=== PATIENT | female | born 1940 | race Caucasian/White ===

== ENCOUNTER 2021-12-27 14:57 | Emergency (ER) | payer OTHER ==
[~2021-12-27] VITALS: Ht 147.3 cm; Wt 49.9 kg
[~2021-12-27 14:57] MED LIST: ALBMDI INH; ASA81 PO; FURO-150 PO; LACT1CAP72 PO; LEVO750T45 PO; LOSA100T3 PO; METO-442 PO; PEDI1TAB28 PO; SIMV20TA2 PO
[2021-12-27 14:59] VITALS: BP_SYST 167
[2021-12-27 15:56] LABS: BASOPHILS % (AUTO) 0.4 % (0.0-2.0); EOSINOPHILS % (AUTO) 0.3 % (0.0-4.0); HEMATOCRIT 42.9 % (36-48); HEMOGLOBIN 14.5 g/dL (12.0-16.0); LYMPHOCYTES # (AUTO) 1.6 K/uL (1.0-5.5); MEAN CORPUSCULAR HEMOGLOBIN 31 pg (27-31); MEAN CORPUSCULAR HGB CONC 34 % (32-36); MEAN CORPUSCULAR VOLUME 93 fL (79.0-98.0); MONOCYTES # (AUTO) 0.7 K/uL (0.0-1.0); MONOCYTES % (AUTO) 6.5 % (1.7-9.3); NEUTROPHILS # (AUTO) 8.9 K/uL (1.8-7.7); NEUTROPHILS % (AUTO) 78.8 % (40.0-70.0); PLATELET COUNT (AUTO) 282 K/uL (130-430); RED BLOOD CELL COUNT(AUTO) 4.62 MIL/uL (4.2-6.2); RED CELL DISTRIBUTION WIDTH 14.5 % (9.0-15.0); WHITE BLOOD COUNT (AUTO) 11.3 K/uL (4.8-10.8)
[2021-12-27 16:54] LABS: ANION GAP 14 (5-15); CALCIUM 10.3 mg/dL (8.4-11.0); CHLORIDE 99 mmol/L (98-107); CREATININE 1.05 mg/dL (0.55-1.30); GLUCOSE 138 mg/dL (70-99); SODIUM SERUM 136 mmol/L (136-145); UREA NITROGEN, BLOOD 23 mg/dL (8-21)
[2021-12-27 16:55] LABS: ALANINE AMINOTRANSFERASE 52 U/L (12-78); ALBUMIN 3.4 g/dL (3.4-4.8); ASPARTATE AMINOTRANSFERASE 46 U/L (10-37); C-REACTIVE PROTEIN QUANT 5.7 mg/dL (0-0.5); TOTAL BILIRUBIN 0.5 mg/dL (0.0-1.0)
[2021-12-27 17:13] LABS: ERYTHROCYTE SEDIMENTATION RATE 65 MM/HR (0-20)
[2021-12-27] MEDS: DIPHENHYDRAMINE INJ 50 MG/ML VIAL IVP ONE (17:14)
[2021-12-27] MEDS: METOCLOPRAMIDE HCL 10 MG/2 ML VIAL IVP ONE (17:14)
[2021-12-27 19:28] VITALS: BP_SYST 121
== END 2021-12-27 19:28 | disposition short-term general hospital (02) ==
LOC: SED 14:57
DX: I61.9 Nontraumatic intracerebral hemorrhage, unspecified (principal); I11.0 Hypertensive heart disease with heart failure; I50.9 Heart failure, unspecified; J44.9 Chronic obstructive pulmonary disease, unspecified; Z79.899 Other long term (current) drug therapy
CPT/HCPCS: 36415; 70450; 71045; 76376; 80053; 84484; 85025; 85651; 86140; 96374; 96375; 99285; J1200; J2765

== ENCOUNTER 2022-04-23 12:52 | Inpatient (IN) | payer OTHER ==
[~2022-04-23] VITALS: Ht 167.6 cm; Wt 45.4 kg
[~2022-04-23 12:52] MED LIST changes: -LEVO750T45 PO; +LEVO750T64 PO; +SIMV-343 PO; -SIMV20TA2 PO
[2022-04-23 13:00] VITALS: BP_SYST 122
[2022-04-23] MEDS ORDERED: LIP40 PO ×2 (13:20→19:43)
[2022-04-23] MEDS ORDERED: LOSA100T3 PO ×2 (13:20→19:43)
[2022-04-23] MEDS ORDERED: METO50TA7 PO ×2 (13:20→19:43)
[2022-04-23] MEDS ORDERED: NACL 0.9% 1,000 ML IV ONE (17:30)
[2022-04-23] MEDS ORDERED: VANCOMYCIN HCL 1,000 MG in D5W 250 ML IV ONE (17:30)
[2022-04-23] MEDS ORDERED: PIPERACILLIN/TAZO 3.38 GM in D5W 50 ML IV ONE (17:30)
[2022-04-23] MEDS ORDERED: PIPERACILLIN/TAZOBACTAM 3.375 GM/VIAL (ZOSYN) IV ONE (18:08)
[2022-04-23] MEDS ORDERED: VANCOMYCIN HCL 1000 MG/VIAL IV ONE (18:08)
[2022-04-23 18:30] LABS: BASOPHILS # (AUTO) 0.1 K/uL (0.0-0.2); BASOPHILS % (AUTO) 0.4 % (0.0-2.0); EOSINOPHILS # (AUTO) 0.2 K/uL (0.0-0.4); EOSINOPHILS % (AUTO) 1.6 % (0.0-4.0); HEMOGLOBIN 13.4 g/dL (12.0-16.0); LYMPHOCYTES # (AUTO) 2.8 K/uL (1.0-5.5); MEAN CORPUSCULAR HEMOGLOBIN 33 pg (27-31); MEAN CORPUSCULAR HGB CONC 34 % (32-36); MEAN CORPUSCULAR VOLUME 100 fL (79.0-98.0); MONOCYTES # (AUTO) 0.7 K/uL (0.0-1.0); NEUTROPHILS # (AUTO) 9.5 K/uL (1.8-7.7); PLATELET COUNT (AUTO) 274 K/uL (130-430); RED BLOOD CELL COUNT(AUTO) 4.02 MIL/uL (4.2-6.2); RED CELL DISTRIBUTION WIDTH 13.7 % (9.0-15.0); WHITE BLOOD COUNT (AUTO) 13.2 K/uL (4.8-10.8)
[2022-04-23] MEDS ORDERED: ASA81 PO (19:43)
[2022-04-23 19:53] LABS: BILIRUBIN,URINE NEGATIVE (NEGATIVE); CLARITY/URINE CLOUDY (CLEAR); COLOR,URINE YELLOW (YELLOW); GLUCOSE,URINE NEGATIVE (NEGATIVE); KETONES,URINE NEGATIVE (NEGATIVE); LEUKOCYTE ESTERASE ,URINE 3+ (NEGATIVE); NITRITE, URINE POSITIVE (NEGATIVE); PROTEIN URINE NEGATIVE (NEGATIVE); UROBILINOGEN,URINE 0.2 (0.2-1.0)
[2022-04-23 20:22] LABS: ERYTHROCYTE SEDIMENTATION RATE 64 MM/HR (0-20)
[2022-04-23 20:29] LABS: BLOOD, URINE TRACE (NEGATIVE)
[2022-04-23 20:38] LABS: CHLORIDE 104 mmol/L (98-107); POTASSIUM 3.7 mmol/L (3.5-5.1); SODIUM SERUM 139 mmol/L (136-145)
[2022-04-23 20:39] LABS: ALANINE AMINOTRANSFERASE 23 U/L (12-78); ANION GAP 12 (5-15); ASPARTATE AMINOTRANSFERASE 18 U/L (10-37); CALCIUM 9.6 mg/dL (8.4-11.0); CREATININE 0.75 mg/dL (0.55-1.30); GLUCOSE 113 mg/dL (70-99); TOTAL BILIRUBIN 0.4 mg/dL (0.0-1.0); UREA NITROGEN, BLOOD 17 mg/dL (8-21)
[2022-04-23 20:40] LABS: ALBUMIN 3.4 g/dL (3.4-4.8)
[2022-04-23 21:32] LABS: BACTERIA,URINE MANY /HPF (None Seen); MUCUS,URINE None Seen /LPF (None Seen); WBC,URINE >100 /HPF (0-3)
[2022-04-24 01:45] VITALS: BP_SYST 155
[2022-04-24 02:22] VITALS: BP_SYST 134
[2022-04-24] MEDS ORDERED: cefTRIAXone 1 GM in D5W 50 ML IV SCH (04:30)
[2022-04-24 06:46] LABS: BASOPHILS # (AUTO) 0.1 K/uL (0.0-0.2); BASOPHILS % (AUTO) 0.6 % (0.0-2.0); EOSINOPHILS # (AUTO) 0.3 K/uL (0.0-0.4); EOSINOPHILS % (AUTO) 3.1 % (0.0-4.0); HEMATOCRIT 37.3 % (36-48); HEMOGLOBIN 12.8 g/dL (12.0-16.0); LYMPHOCYTES # (AUTO) 2.8 K/uL (1.0-5.5); LYMPHOCYTES % (AUTO) 29.4 % (20.5-51.5); MEAN CORPUSCULAR HEMOGLOBIN 34 pg (27-31); MEAN CORPUSCULAR HGB CONC 34 % (32-36); MEAN CORPUSCULAR VOLUME 99 fL (79.0-98.0); MONOCYTES # (AUTO) 0.6 K/uL (0.0-1.0); NEUTROPHILS # (AUTO) 5.7 K/uL (1.8-7.7); NEUTROPHILS % (AUTO) 60.9 % (40.0-70.0); PLATELET COUNT (AUTO) 278 K/uL (130-430); RED BLOOD CELL COUNT(AUTO) 3.77 MIL/uL (4.2-6.2); RED CELL DISTRIBUTION WIDTH 13.5 % (9.0-15.0); WHITE BLOOD COUNT (AUTO) 9.4 K/uL (4.8-10.8)
[2022-04-24 08:00] VITALS: BP_SYST 103; BP_SYST 147
[2022-04-24] MEDS: cefTRIAXone 1 GM in D5W 50 ML IV SCH (09:55)
[2022-04-24] MEDS ORDERED: ALBUTEROL SULFATE 0.083% 2.5 MG/3 ML VIAL.NEB INH PRN (11:15)
[2022-04-24] MEDS ORDERED: ONDANSETRON HCL 4 MG/2 ML VIAL IVP PRN (11:15)
[2022-04-24] MEDS ORDERED: ALBUTEROL MDI INHALATION 8 GM INH INH PRN (11:15)
[2022-04-24] MEDS ORDERED: LORazepam 2 MG/ML VIAL IVP PRN (11:15)
[2022-04-24] MEDS ORDERED: IPRATROPIUM BROM 0.5 MG/2.5 ML VIAL.NEB (ATROVENT) INH PRN (11:15)
[2022-04-24] MEDS ORDERED: NALOXONE HCL 0.4 MG/ML AMP (NARCAN) IVP PRN ×2 (11:15)
[2022-04-24] MEDS ORDERED: ACETAMINOPHEN 325 MG TABLET PO PRN (11:15)
[2022-04-24 12:00] VITALS: BP_SYST 101; BP_SYST 115
[2022-04-24] MEDS: NORMAL SALINE 5 ML DISP.SYRIN IVF SCH ×4 (13:11→21:41)
[2022-04-24 16:00] VITALS: BP_SYST 113
[2022-04-24] MEDS: HYDROcodone/ACETAMIN 5-325 MG TAB (NORCO/ VICODIN) PO PRN ×2 (16:46→21:40)
[2022-04-24 20:00] VITALS: BP_SYST 120
[2022-04-24] MEDS: ATORVASTATIN 20 MG TABLET PO SCH (21:36)
[2022-04-25] VITALS: BP_SYST 126
[2022-04-25 04:00] VITALS: BP_SYST 124
[2022-04-25] MEDS: NORMAL SALINE 5 ML DISP.SYRIN IVF SCH ×4 (06:24→21:02)
[2022-04-25 07:09] LABS: BASOPHILS # (AUTO) 0.1 K/uL (0.0-0.2); BASOPHILS % (AUTO) 0.6 % (0.0-2.0); EOSINOPHILS # (AUTO) 0.3 K/uL (0.0-0.4); EOSINOPHILS % (AUTO) 3.6 % (0.0-4.0); HEMATOCRIT 33.9 % (36-48); HEMOGLOBIN 11.6 g/dL (12.0-16.0); LYMPHOCYTES # (AUTO) 2.1 K/uL (1.0-5.5); LYMPHOCYTES % (AUTO) 25.3 % (20.5-51.5); MEAN CORPUSCULAR HEMOGLOBIN 34 pg (27-31); MEAN CORPUSCULAR HGB CONC 34 % (32-36); MEAN CORPUSCULAR VOLUME 99 fL (79.0-98.0); MONOCYTES # (AUTO) 0.6 K/uL (0.0-1.0); MONOCYTES % (AUTO) 6.9 % (1.7-9.3); NEUTROPHILS # (AUTO) 5.3 K/uL (1.8-7.7); NEUTROPHILS % (AUTO) 63.6 % (40.0-70.0); PLATELET COUNT (AUTO) 240 K/uL (130-430); RED BLOOD CELL COUNT(AUTO) 3.42 MIL/uL (4.2-6.2); RED CELL DISTRIBUTION WIDTH 13.5 % (9.0-15.0); WHITE BLOOD COUNT (AUTO) 8.3 K/uL (4.8-10.8)
[2022-04-25 07:50] LABS: ALANINE AMINOTRANSFERASE 17 U/L (12-78); ALBUMIN 2.7 g/dL (3.4-4.8); ANION GAP 10 (5-15); ASPARTATE AMINOTRANSFERASE 16 U/L (10-37); C-REACTIVE PROTEIN QUANT 1.8 mg/dL (0-0.5); CALCIUM 8.8 mg/dL (8.4-11.0); CHLORIDE 106 mmol/L (98-107); CREATININE 0.78 mg/dL (0.55-1.30); GLUCOSE 93 mg/dL (70-99); POTASSIUM 3.7 mmol/L (3.5-5.1); SODIUM SERUM 140 mmol/L (136-145); TOTAL BILIRUBIN 0.2 mg/dL (0.0-1.0); UREA NITROGEN, BLOOD 15 mg/dL (8-21)
[2022-04-25 08:00] VITALS: BP_SYST 149
[2022-04-25 09:39] LABS: ERYTHROCYTE SEDIMENTATION RATE 56 MM/HR (0-20)
[2022-04-25] MEDS: ASPIRIN 81 MG TAB.CHEW PO SCH (10:12)
[2022-04-25] MEDS: FUROSEMIDE 20 MG TABLET PO SCH (10:13)
[2022-04-25] MEDS: METOPROLOL SUCCINATE 50 MG TAB.SR.24H (TOPROL XL) PO SCH (10:13)
[2022-04-25] MEDS: LOSARTAN POTASSIUM 50 MG TABLET (COZAAR) PO SCH (10:15)
[2022-04-25] MEDS: cefTRIAXone 1 GM in D5W 50 ML IV SCH (10:15)
[2022-04-25 16:17] VITALS: BP_SYST 127
[2022-04-25 20:16] VITALS: BP_SYST 132
[2022-04-25] MEDS: ATORVASTATIN 20 MG TABLET PO SCH (21:02)
[2022-04-26] VITALS: BP_SYST 135
[2022-04-26] MEDS: HYDROcodone/ACETAMIN 10-325 MG TAB PO PRN ×3 (01:27→21:29)
[2022-04-26 04:28] VITALS: BP_SYST 128
[2022-04-26] MEDS: NORMAL SALINE 5 ML DISP.SYRIN IVF SCH ×3 (05:59→21:29)
[2022-04-26 08:14] VITALS: BP_SYST 154
[2022-04-26] MEDS: ASPIRIN 81 MG TAB.CHEW PO SCH (08:16)
[2022-04-26] MEDS: LOSARTAN POTASSIUM 50 MG TABLET (COZAAR) PO SCH (08:16)
[2022-04-26] MEDS: FUROSEMIDE 20 MG TABLET PO SCH (08:17)
[2022-04-26] MEDS: METOPROLOL SUCCINATE 50 MG TAB.SR.24H (TOPROL XL) PO SCH (08:17)
[2022-04-26] MEDS: cefTRIAXone 1 GM in D5W 50 ML IV SCH (08:17)
[2022-04-26 08:27] LABS: ANION GAP 9 (5-15); CALCIUM 8.9 mg/dL (8.4-11.0); CHLORIDE 105 mmol/L (98-107); CREATININE 0.71 mg/dL (0.55-1.30); GLUCOSE 101 mg/dL (70-99); POTASSIUM 3.6 mmol/L (3.5-5.1); SODIUM SERUM 139 mmol/L (136-145); UREA NITROGEN, BLOOD 10 mg/dL (8-21)
[2022-04-26 08:36] LABS: BASOPHILS % (AUTO) 0.5 % (0.0-2.0); EOSINOPHILS # (AUTO) 0.4 K/uL (0.0-0.4); EOSINOPHILS % (AUTO) 4.3 % (0.0-4.0); HEMATOCRIT 35.3 % (36-48); LYMPHOCYTES # (AUTO) 1.1 K/uL (1.0-5.5); LYMPHOCYTES % (AUTO) 11.9 % (20.5-51.5); MEAN CORPUSCULAR HEMOGLOBIN 34 pg (27-31); MEAN CORPUSCULAR HGB CONC 34 % (32-36); MEAN CORPUSCULAR VOLUME 99 fL (79.0-98.0); MONOCYTES # (AUTO) 0.6 K/uL (0.0-1.0); MONOCYTES % (AUTO) 6.8 % (1.7-9.3); NEUTROPHILS # (AUTO) 6.9 K/uL (1.8-7.7); NEUTROPHILS % (AUTO) 76.5 % (40.0-70.0); PLATELET COUNT (AUTO) 243 K/uL (130-430); RED BLOOD CELL COUNT(AUTO) 3.57 MIL/uL (4.2-6.2); RED CELL DISTRIBUTION WIDTH 13.5 % (9.0-15.0); WHITE BLOOD COUNT (AUTO) 9.1 K/uL (4.8-10.8)
[2022-04-26 10:09] LABS: ERYTHROCYTE SEDIMENTATION RATE 69 MM/HR (0-20)
[2022-04-26 18:37] VITALS: BP_SYST 146
[2022-04-26 20:00] VITALS: BP_SYST 154
[2022-04-26] MEDS: ATORVASTATIN 20 MG TABLET PO SCH (21:28)
[2022-04-27] VITALS (7 sets, daily range): BP systolic 133–161
[2022-04-27 07:29] LABS: BASOPHILS # (AUTO) 0.1 K/uL (0.0-0.2); BASOPHILS % (AUTO) 0.9 % (0.0-2.0); EOSINOPHILS # (AUTO) 0.5 K/uL (0.0-0.4); EOSINOPHILS % (AUTO) 5.6 % (0.0-4.0); HEMATOCRIT 34.1 % (36-48); HEMOGLOBIN 11.6 g/dL (12.0-16.0); LYMPHOCYTES % (AUTO) 23.6 % (20.5-51.5); MEAN CORPUSCULAR HEMOGLOBIN 34 pg (27-31); MEAN CORPUSCULAR HGB CONC 34 % (32-36); MEAN CORPUSCULAR VOLUME 99 fL (79.0-98.0); MONOCYTES # (AUTO) 0.7 K/uL (0.0-1.0); MONOCYTES % (AUTO) 8.1 % (1.7-9.3); NEUTROPHILS # (AUTO) 5.4 K/uL (1.8-7.7); NEUTROPHILS % (AUTO) 61.8 % (40.0-70.0); PLATELET COUNT (AUTO) 252 K/uL (130-430); RED BLOOD CELL COUNT(AUTO) 3.44 MIL/uL (4.2-6.2); RED CELL DISTRIBUTION WIDTH 13.2 % (9.0-15.0); WHITE BLOOD COUNT (AUTO) 8.7 K/uL (4.8-10.8)
[2022-04-27 07:44] LABS: ANION GAP 9 (5-15); C-REACTIVE PROTEIN QUANT 4.2 mg/dL (0-0.5); CALCIUM 8.9 mg/dL (8.4-11.0); CHLORIDE 103 mmol/L (98-107); CREATININE 0.86 mg/dL (0.55-1.30); GLUCOSE 99 mg/dL (70-99); SODIUM SERUM 139 mmol/L (136-145); UREA NITROGEN, BLOOD 12 mg/dL (8-21)
[2022-04-27] MEDS: FUROSEMIDE 20 MG TABLET PO SCH (08:59)
[2022-04-27] MEDS: METOPROLOL SUCCINATE 50 MG TAB.SR.24H (TOPROL XL) PO SCH (08:59)
[2022-04-27] MEDS: cefTRIAXone 1 GM in D5W 50 ML IV SCH (09:01)
[2022-04-27] MEDS: NORMAL SALINE 5 ML DISP.SYRIN IVF SCH ×3 (09:01→20:47)
[2022-04-27] MEDS: ASPIRIN 81 MG TAB.CHEW PO SCH (09:01)
[2022-04-27] MEDS: LOSARTAN POTASSIUM 50 MG TABLET (COZAAR) PO SCH (09:01)
[2022-04-27 12:00] LABS: ERYTHROCYTE SEDIMENTATION RATE 67 MM/HR (0-20)
[2022-04-27] MEDS: ATORVASTATIN 20 MG TABLET PO SCH (20:47)
[2022-04-27] MEDS: HYDROcodone/ACETAMIN 10-325 MG TAB PO PRN (20:51)
[2022-04-28 00:57] VITALS: BP_SYST 157
[2022-04-28] MEDS: HYDROcodone/ACETAMIN 10-325 MG TAB PO PRN ×2 (04:56→22:21)
[2022-04-28] MEDS: NORMAL SALINE 5 ML DISP.SYRIN IVF SCH ×3 (06:45→22:23)
[2022-04-28 07:37] LABS: BASOPHILS # (AUTO) 0.1 K/uL (0.0-0.2); BASOPHILS % (AUTO) 0.7 % (0.0-2.0); EOSINOPHILS # (AUTO) 0.5 K/uL (0.0-0.4); EOSINOPHILS % (AUTO) 4.7 % (0.0-4.0); HEMATOCRIT 35.4 % (36-48); HEMOGLOBIN 12.2 g/dL (12.0-16.0); LYMPHOCYTES # (AUTO) 1.6 K/uL (1.0-5.5); LYMPHOCYTES % (AUTO) 15.2 % (20.5-51.5); MEAN CORPUSCULAR HEMOGLOBIN 34 pg (27-31); MEAN CORPUSCULAR HGB CONC 35 % (32-36); MEAN CORPUSCULAR VOLUME 98 fL (79.0-98.0); MONOCYTES # (AUTO) 0.7 K/uL (0.0-1.0); MONOCYTES % (AUTO) 6.8 % (1.7-9.3); NEUTROPHILS # (AUTO) 7.5 K/uL (1.8-7.7); NEUTROPHILS % (AUTO) 72.6 % (40.0-70.0); PLATELET COUNT (AUTO) 247 K/uL (130-430); RED CELL DISTRIBUTION WIDTH 13.2 % (9.0-15.0); WHITE BLOOD COUNT (AUTO) 10.4 K/uL (4.8-10.8)
[2022-04-28 08:01] VITALS: BP_SYST 105
[2022-04-28] MEDS: BALSAM PERU/CASTOR OIL 56.7 GM OINT...G. TP SCH (09:00)
[2022-04-28] MEDS: LOSARTAN POTASSIUM 50 MG TABLET (COZAAR) PO SCH (09:09)
[2022-04-28] MEDS: ASPIRIN 81 MG TAB.CHEW PO SCH (09:09)
[2022-04-28] MEDS: METOPROLOL SUCCINATE 50 MG TAB.SR.24H (TOPROL XL) PO SCH (09:09)
[2022-04-28] MEDS: FUROSEMIDE 20 MG TABLET PO SCH (09:10)
[2022-04-28] MEDS: cefTRIAXone 1 GM in D5W 50 ML IV SCH (09:10)
[2022-04-28 09:43] LABS: ERYTHROCYTE SEDIMENTATION RATE 56 MM/HR (0-20)
[2022-04-28 09:53] LABS: ALANINE AMINOTRANSFERASE 18 U/L (12-78); ALBUMIN 2.8 g/dL (3.4-4.8); ANION GAP 7 (5-15); ASPARTATE AMINOTRANSFERASE 19 U/L (10-37); CALCIUM 9.3 mg/dL (8.4-11.0); CHLORIDE 103 mmol/L (98-107); CREATININE 0.86 mg/dL (0.55-1.30); GLUCOSE 109 mg/dL (70-99); POTASSIUM 4.4 mmol/L (3.5-5.1); SODIUM SERUM 137 mmol/L (136-145); TOTAL BILIRUBIN 0.3 mg/dL (0.0-1.0); UREA NITROGEN, BLOOD 14 mg/dL (8-21)
[2022-04-28 12:00] VITALS: BP_SYST 159
[2022-04-28 16:09] VITALS: BP_SYST 130
[2022-04-28 20:00] VITALS: BP_SYST 135
[2022-04-28] MEDS: ATORVASTATIN 20 MG TABLET PO SCH (22:22)
[2022-04-29] VITALS (8 sets, daily range): BP systolic 109–156
[2022-04-29] MEDS: HYDROcodone/ACETAMIN 10-325 MG TAB PO PRN (04:09)
[2022-04-29] MEDS: NORMAL SALINE 5 ML DISP.SYRIN IVF SCH ×3 (07:00→21:07)
[2022-04-29] MEDS: cefTRIAXone 1 GM in D5W 50 ML IV SCH (09:50)
[2022-04-29] MEDS: ASPIRIN 81 MG TAB.CHEW PO SCH (10:14)
[2022-04-29] MEDS: FUROSEMIDE 20 MG TABLET PO SCH (10:15)
[2022-04-29] MEDS: LOSARTAN POTASSIUM 50 MG TABLET (COZAAR) PO SCH (10:15)
[2022-04-29] MEDS: BALSAM PERU/CASTOR OIL 56.7 GM OINT...G. TP SCH (10:16)
[2022-04-29] MEDS: METOPROLOL SUCCINATE 50 MG TAB.SR.24H (TOPROL XL) PO SCH (10:16)
[2022-04-29 10:27] LABS: ANION GAP 9 (5-15); C-REACTIVE PROTEIN QUANT 5.2 mg/dL (0-0.5); CHLORIDE 99 mmol/L (98-107); CREATININE 0.86 mg/dL (0.55-1.30); GLUCOSE 107 mg/dL (70-99); SODIUM SERUM 135 mmol/L (136-145); UREA NITROGEN, BLOOD 13 mg/dL (8-21)
[2022-04-29 14:44] LABS: BASOPHILS # (AUTO) 0.1 K/uL (0.0-0.2); BASOPHILS % (AUTO) 1.1 % (0.0-2.0); EOSINOPHILS # (AUTO) 0.4 K/uL (0.0-0.4); EOSINOPHILS % (AUTO) 4.7 % (0.0-4.0); HEMATOCRIT 34.3 % (36-48); HEMOGLOBIN 11.9 g/dL (12.0-16.0); LYMPHOCYTES % (AUTO) 23.4 % (20.5-51.5); MEAN CORPUSCULAR HEMOGLOBIN 35 pg (27-31); MEAN CORPUSCULAR HGB CONC 35 % (32-36); MEAN CORPUSCULAR VOLUME 100 fL (79.0-98.0); MONOCYTES # (AUTO) 0.7 K/uL (0.0-1.0); NEUTROPHILS # (AUTO) 5.5 K/uL (1.8-7.7); NEUTROPHILS % (AUTO) 62.8 % (40.0-70.0); PLATELET COUNT (AUTO) 239 K/uL (130-430); RED BLOOD CELL COUNT(AUTO) 3.44 MIL/uL (4.2-6.2); RED CELL DISTRIBUTION WIDTH 13.2 % (9.0-15.0); WHITE BLOOD COUNT (AUTO) 8.7 K/uL (4.8-10.8)
[2022-04-29 15:26] LABS: ERYTHROCYTE SEDIMENTATION RATE 67 MM/HR (0-20)
[2022-04-29] MEDS: HYDROcodone/ACETAMIN 5-325 MG TAB (NORCO/ VICODIN) PO PRN (17:08)
[2022-04-29] MEDS: ATORVASTATIN 20 MG TABLET PO SCH (21:07)
[2022-04-30 00:06] VITALS: BP_SYST 108
[2022-04-30] MEDS: NORMAL SALINE 5 ML DISP.SYRIN IVF SCH (06:25)
[2022-04-30 08:00] VITALS: BP_SYST 166
[2022-04-30 08:03] LABS: ANION GAP 5 (5-15); C-REACTIVE PROTEIN QUANT 4.8 mg/dL (0-0.5); CHLORIDE 102 mmol/L (98-107); CREATININE 0.82 mg/dL (0.55-1.30); GLUCOSE 108 mg/dL (70-99); POTASSIUM 4.6 mmol/L (3.5-5.1); SODIUM SERUM 136 mmol/L (136-145); UREA NITROGEN, BLOOD 20 mg/dL (8-21)
[2022-04-30] MEDS: ASPIRIN 81 MG TAB.CHEW PO SCH (09:04)
[2022-04-30] MEDS: HYDROcodone/ACETAMIN 10-325 MG TAB PO PRN (09:05)
[2022-04-30] MEDS: LOSARTAN POTASSIUM 50 MG TABLET (COZAAR) PO SCH (09:05)
[2022-04-30] MEDS: FUROSEMIDE 20 MG TABLET PO SCH (09:06)
[2022-04-30] MEDS: METOPROLOL SUCCINATE 50 MG TAB.SR.24H (TOPROL XL) PO SCH (09:06)
[2022-04-30] MEDS: BALSAM PERU/CASTOR OIL 56.7 GM OINT...G. TP SCH (09:06)
[2022-04-30] MEDS: cefTRIAXone 1 GM in D5W 50 ML IV SCH (10:28)
[2022-04-30 12:08] LABS: BASOPHILS # (AUTO) 0.1 K/uL (0.0-0.2); BASOPHILS % (AUTO) 1.1 % (0.0-2.0); EOSINOPHILS # (AUTO) 0.3 K/uL (0.0-0.4); EOSINOPHILS % (AUTO) 3.5 % (0.0-4.0); HEMATOCRIT 35.2 % (36-48); HEMOGLOBIN 11.9 g/dL (12.0-16.0); LYMPHOCYTES # (AUTO) 1.9 K/uL (1.0-5.5); LYMPHOCYTES % (AUTO) 19.8 % (20.5-51.5); MEAN CORPUSCULAR HEMOGLOBIN 33 pg (27-31); MEAN CORPUSCULAR HGB CONC 34 % (32-36); MEAN CORPUSCULAR VOLUME 98 fL (79.0-98.0); MONOCYTES # (AUTO) 0.5 K/uL (0.0-1.0); MONOCYTES % (AUTO) 5.6 % (1.7-9.3); NEUTROPHILS # (AUTO) 6.7 K/uL (1.8-7.7); PLATELET COUNT (AUTO) 258 K/uL (130-430); RED BLOOD CELL COUNT(AUTO) 3.58 MIL/uL (4.2-6.2); RED CELL DISTRIBUTION WIDTH 13.1 % (9.0-15.0); WHITE BLOOD COUNT (AUTO) 9.6 K/uL (4.8-10.8)
[2022-04-30 12:35] VITALS: BP_SYST 135
[2022-04-30 12:41] VITALS: BP_SYST 135
[2022-04-30 13:21] LABS: ERYTHROCYTE SEDIMENTATION RATE 73 MM/HR (0-20)
== END 2022-04-30 13:45 | DRG 871 ==
LOC: SED 12:52 → SMU 21:35
PROVIDERS: ADMIT Preventive Medicine Preventive Medicine/Occupational Environmental Medicine; ATTEND Preventive Medicine Preventive Medicine/Occupational Environmental Medicine
DX: A41.9 Sepsis, unspecified organism (principal); E43 Unspecified severe protein-calorie malnutrition; N39.0 Urinary tract infection, site not specified; L03.811 Cellulitis of head [any part, except face]; I11.0 Hypertensive heart disease with heart failure; F03.90 Unspecified dementia, unspecified severity, without behavioral disturbance, psychotic disturbance, mood disturbance, and anxiety; J44.9 Chronic obstructive pulmonary disease, unspecified; R73.9 Hyperglycemia, unspecified; I25.10 Atherosclerotic heart disease of native coronary artery without angina pectoris; E88.09 Other disorders of plasma-protein metabolism, not elsewhere classified; E78.5 Hyperlipidemia, unspecified; D64.9 Anemia, unspecified; S01.00XA Unspecified open wound of scalp, initial encounter; X58.XXXA Exposure to other specified factors, initial encounter; Z20.822 Contact with and (suspected) exposure to COVID-19; B95.62 Methicillin resistant Staphylococcus aureus infection as the cause of diseases classified elsewhere; B96.20 Unspecified Escherichia coli [E. coli] as the cause of diseases classified elsewhere; I50.9 Heart failure, unspecified; Z91.09 Other allergy status, other than to drugs and biological substances; Z79.899 Other long term (current) drug therapy; Z86.73 Personal history of transient ischemic attack (TIA), and cerebral infarction without residual deficits; Z95.1 Presence of aortocoronary bypass graft; Y93.89 Activity, other specified; Y92.89 Other specified places as the place of occurrence of the external cause; Y99.8 Other external cause status
CPT/HCPCS: 36415; 70450-TC; 71045; 76376; 80048; 80053; 81000; 83605; 84484; 85025; 85610-TC; 85651-TC; 85730-TC; 86140; 87040; 87070-TC; 87075-TC; 87081; 87086; 87186-TC; 96365; 96367; 97110-GP; 97530-GP; 99285; J0696; J2060; J2405; J2543; J3370; J7030; J7060

== ENCOUNTER 2023-04-15 23:28 | Inpatient (IN) | payer OTHER ==
[~2023-04-15] VITALS: Ht 152.4 cm; Wt 50.8 kg
[~2023-04-15 23:28] MED LIST changes: +LIP40 PO; -LOSA100T3 PO; +LOSA100T4 PO; +METO50TA7 PO
[2023-04-15 23:34] VITALS: BP_SYST 164; PULSE 90; RESP 20; TEMP 97.5; O2SAT 96
[2023-04-15] MEDS ORDERED: cefTRIAXone 1 GM IVPB PREMIX 50 ML IV ONE (23:45)
[2023-04-16 00:42] LABS: BASOPHILS # (AUTO) 0.1 K/uL (0.0-0.2); BASOPHILS % (AUTO) 0.4 % (0.0-2.0); EOSINOPHILS # (AUTO) 0.5 K/uL (0.0-0.4); HEMATOCRIT 43.4 % (36-48); HEMOGLOBIN 14.6 g/dL (12.0-16.0); LYMPHOCYTES # (AUTO) 2.6 K/uL (1.0-5.5); LYMPHOCYTES % (AUTO) 19.9 % (20.5-51.5); MEAN CORPUSCULAR HEMOGLOBIN 32 pg (27-31); MEAN CORPUSCULAR HGB CONC 34 % (32-36); MEAN CORPUSCULAR VOLUME 94 fL (79.0-98.0); MONOCYTES # (AUTO) 1.1 K/uL (0.0-1.0); MONOCYTES % (AUTO) 8.5 % (1.7-9.3); NEUTROPHILS # (AUTO) 8.9 K/uL (1.8-7.7); NEUTROPHILS % (AUTO) 67.2 % (40.0-70.0); PLATELET COUNT (AUTO) 151 K/uL (130-430); RED CELL DISTRIBUTION WIDTH 13.2 % (9.0-15.0); WHITE BLOOD COUNT (AUTO) 13.2 K/uL (4.8-10.8)
[2023-04-16 00:47] LABS: ANION GAP 11 (5-15); CALCIUM 9.3 mg/dL (8.4-11.0); CARBON DIOXIDE 22 mmol/L (23-29); CHLORIDE 100 mmol/L (98-107); CREATININE 0.94 mg/dL (0.55-1.30); GLUCOSE 120 mg/dL (74-106); POTASSIUM 3.7 mmol/L (3.5-5.1); SODIUM SERUM 133 mmol/L (136-145); UREA NITROGEN, BLOOD 24 mg/dL (8-21)
[2023-04-16 01:06] LABS: ALBUMIN 3.5 g/dL (3.4-4.8); ASPARTATE AMINOTRANSFERASE 27 U/L (10-37); TOTAL BILIRUBIN 1.3 mg/dL (0.0-1.0); TOTAL PROTEIN, SERUM 7.1 g/dL (6.4-8.3)
[2023-04-16] MEDS ORDERED: NACL 0.9% 1,000 ML IV ONE (01:15)
[2023-04-16 01:24] LABS: CLARITY/URINE SLIGHTLY CLOUDY (CLEAR); COLOR,URINE YELLOW (YELLOW)
[2023-04-16 01:25] LABS: PH,URINE 6.5 (5.0-8.0)
[2023-04-16 01:26] LABS: PROTEIN URINE 2+ (NEGATIVE)
[2023-04-16 01:27] LABS: BILIRUBIN,URINE NEGATIVE (NEGATIVE); BLOOD, URINE 2+ (NEGATIVE); GLUCOSE,URINE NEGATIVE (NEGATIVE); KETONES,URINE NEGATIVE (NEGATIVE)
[2023-04-16 01:28] LABS: LEUKOCYTE ESTERASE ,URINE 2+ (NEGATIVE); NITRITE, URINE POSITIVE (NEGATIVE); UROBILINOGEN,URINE 0.2 (0.2-1.0)
[2023-04-16 01:36] LABS: INFLUENZA TYPE A negative (NEGATIVE); INFLUENZA TYPE B NEGATIVE (NEGATIVE)
[2023-04-16 01:41] LABS: BACTERIA,URINE MODERATE /HPF (None Seen); RBC,URINE >100 /HPF (0-3); WBC,URINE >100 /HPF (0-3)
[2023-04-16 01:47] LABS: ALANINE AMINOTRANSFERASE 10 U/L (12-78)
[2023-04-16] MEDS ORDERED: D5/0.45 NS 1,000 ML IV ONE (03:30)
[2023-04-16] MEDS ORDERED: MORPHINE 2 MG/ML INJ. SYRINGE IVP PRN (07:30)
[2023-04-16] MEDS ORDERED: ACETAMINOPHEN 500 MG TABLET PO PRN (07:30)
[2023-04-16] MEDS ORDERED: OXYCODONE/ACETAMINOPHEN 5-325 TABLET PO PRN (07:30)
[2023-04-16] MEDS ORDERED: NALOXONE HCL 0.4 MG/ML AMP (NARCAN) IVP PRN ×2 (07:30→17:00)
[2023-04-16 12:00] VITALS: BP_SYST 145; PULSE 113; RESP 19; TEMP 97.3; O2SAT 95
[2023-04-16] MEDS ORDERED: HYDROcodone/ACETAMIN 5-325 MG TAB (NORCO/ VICODIN) PO PRN (17:00)
[2023-04-16] MEDS: NYSTATIN 500,000 UNITS/5 ML UDC PO SCH ×2 (18:07→23:50)
[2023-04-16] MEDS: D5/0.45 NS 1,000 ML IV SCH (18:08)
[2023-04-16 20:25] VITALS: BP_SYST 133; PULSE 93; RESP 20; TEMP 97.1; O2SAT 96
[2023-04-16] MEDS: DOXYCYCLINE HYCLATE 100 MG CAPSULE PO SCH (21:13)
[2023-04-16] MEDS: DONEPEZIL HCL 5 MG TABLET (ARICEPT) PO SCH (21:13)
[2023-04-16] MEDS: cefTRIAXone 1 GM in D5W 50 ML IV SCH (21:13)
[2023-04-16 22:00] VITALS: O2SAT 96
[2023-04-17] VITALS (7 sets, daily range): BP systolic 124–147; PULSE 86–115; RESP 19–20; TEMP 96.5–98; O2SAT 95
[2023-04-17 05:54] LABS: ANION GAP 9 (5-15); CALCIUM 8.9 mg/dL (8.4-11.0); CARBON DIOXIDE 22 mmol/L (23-29); CHLORIDE 103 mmol/L (98-107); CREATININE 0.75 mg/dL (0.55-1.30); GLUCOSE 138 mg/dL (74-106); POTASSIUM 3.7 mmol/L (3.5-5.1); SODIUM SERUM 134 mmol/L (136-145); UREA NITROGEN, BLOOD 14 mg/dL (8-21)
[2023-04-17 06:00] LABS: BASOPHILS % (AUTO) 0.2 % (0.0-2.0); EOSINOPHILS # (AUTO) 0.3 K/uL (0.0-0.4); EOSINOPHILS % (AUTO) 2.3 % (0.0-4.0); HEMATOCRIT 40.6 % (36-48); HEMOGLOBIN 13.7 g/dL (12.0-16.0); LYMPHOCYTES # (AUTO) 1.2 K/uL (1.0-5.5); LYMPHOCYTES % (AUTO) 10.2 % (20.5-51.5); MEAN CORPUSCULAR HEMOGLOBIN 32 pg (27-31); MEAN CORPUSCULAR HGB CONC 34 % (32-36); MEAN CORPUSCULAR VOLUME 95 fL (79.0-98.0); MONOCYTES # (AUTO) 1.1 K/uL (0.0-1.0); MONOCYTES % (AUTO) 9.1 % (1.7-9.3); NEUTROPHILS # (AUTO) 9.4 K/uL (1.8-7.7); NEUTROPHILS % (AUTO) 78.2 % (40.0-70.0); PLATELET COUNT (AUTO) 154 K/uL (130-430); RED BLOOD CELL COUNT(AUTO) 4.28 MIL/uL (4.2-6.2); RED CELL DISTRIBUTION WIDTH 13.3 % (9.0-15.0); WHITE BLOOD COUNT (AUTO) 12.1 K/uL (4.8-10.8)
[2023-04-17] MEDS: NYSTATIN 500,000 UNITS/5 ML UDC PO SCH ×4 (06:00→18:00)
[2023-04-17] MEDS: DOXYCYCLINE HYCLATE 100 MG CAPSULE PO SCH ×2 (09:27→20:22)
[2023-04-17] MEDS: D5/0.45 NS 1,000 ML IV SCH (10:00)
[2023-04-17] MEDS ORDERED: LOSARTAN POTASSIUM 50 MG TABLET (COZAAR) PO SCH (11:15)
[2023-04-17] MEDS ORDERED: ASPIRIN 81 MG TABLET(ECOTRIN) PO ONE (11:30)
[2023-04-17] MEDS ORDERED: METOPROLOL TARTRATE 50 MG TABLET PO ONE (11:30)
[2023-04-17] MEDS ORDERED: LOSARTAN POTASSIUM 50 MG TABLET (COZAAR) PO ONE (11:30)
[2023-04-17] MEDS: traMADol HCL HCL 50 MG TABLET (ULTRAM) PO PRN (13:22)
[2023-04-17] MEDS: DONEPEZIL HCL 5 MG TABLET (ARICEPT) PO SCH (20:22)
[2023-04-17] MEDS: ATORVASTATIN 20 MG TABLET PO SCH (20:22)
[2023-04-17] MEDS: cefTRIAXone 1 GM in D5W 50 ML IV SCH (20:23)
[2023-04-18 00:12] VITALS: BP_SYST 139; PULSE 97; RESP 20; TEMP 97.5; O2SAT 98
[2023-04-18] MEDS: NYSTATIN 500,000 UNITS/5 ML UDC PO SCH ×4 (00:36→18:10)
[2023-04-18] MEDS: D5/0.45 NS 1,000 ML IV SCH ×2 (05:16→18:12)
[2023-04-18 05:52] LABS: BASOPHILS # (AUTO) 0.1 K/uL (0.0-0.2); BASOPHILS % (AUTO) 0.5 % (0.0-2.0); EOSINOPHILS # (AUTO) 0.5 K/uL (0.0-0.4); EOSINOPHILS % (AUTO) 4.1 % (0.0-4.0); HEMATOCRIT 38.1 % (36-48); HEMOGLOBIN 12.8 g/dL (12.0-16.0); LYMPHOCYTES # (AUTO) 2.1 K/uL (1.0-5.5); LYMPHOCYTES % (AUTO) 18.2 % (20.5-51.5); MEAN CORPUSCULAR HEMOGLOBIN 32 pg (27-31); MEAN CORPUSCULAR HGB CONC 34 % (32-36); MEAN CORPUSCULAR VOLUME 94 fL (79.0-98.0); MONOCYTES % (AUTO) 8.8 % (1.7-9.3); NEUTROPHILS # (AUTO) 7.9 K/uL (1.8-7.7); NEUTROPHILS % (AUTO) 68.4 % (40.0-70.0); PLATELET COUNT (AUTO) 143 K/uL (130-430); RED BLOOD CELL COUNT(AUTO) 4.05 MIL/uL (4.2-6.2); WHITE BLOOD COUNT (AUTO) 11.5 K/uL (4.8-10.8)
[2023-04-18 06:13] LABS: ANION GAP 8 (5-15); CALCIUM 8.4 mg/dL (8.4-11.0); CARBON DIOXIDE 23 mmol/L (23-29); CHLORIDE 104 mmol/L (98-107); CREATININE 0.81 mg/dL (0.55-1.30); GLUCOSE 128 mg/dL (74-106); POTASSIUM 3.8 mmol/L (3.5-5.1); SODIUM SERUM 135 mmol/L (136-145); UREA NITROGEN, BLOOD 16 mg/dL (8-21)
[2023-04-18 08:00] VITALS: BP_SYST 145; PULSE 104; RESP 18; TEMP 97.9; O2SAT 96
[2023-04-18] MEDS: ASPIRIN 81 MG TABLET(ECOTRIN) PO SCH (09:43)
[2023-04-18] MEDS: DOXYCYCLINE HYCLATE 100 MG CAPSULE PO SCH ×2 (09:43→20:48)
[2023-04-18] MEDS: METOPROLOL TARTRATE 50 MG TABLET PO SCH (09:44)
[2023-04-18] MEDS: LOSARTAN POTASSIUM 50 MG TABLET (COZAAR) PO SCH (09:45)
[2023-04-18 12:00] VITALS: BP_SYST 123; PULSE 90; RESP 18; TEMP 98.4; O2SAT 99
[2023-04-18] MEDS ORDERED: HEPARIN SODIUM,PORCINE 3000 UNITS/0.6 ML BOLUS IVP PRN (13:15)
[2023-04-18] MEDS ORDERED: HEPARIN SODIUM,PORCINE 2000 UNITS/0.4 ML BOLUS IVP PRN (13:15)
[2023-04-18] MEDS: traMADol HCL HCL 50 MG TABLET (ULTRAM) PO PRN (13:21)
[2023-04-18 13:49] LABS: INR 1.1 (0.8-1.2)
[2023-04-18] MEDS ORDERED: HEPARIN SODIUM,PORCINE 3000 UNITS/0.6 ML BOLUS IVP ONE (14:00)
[2023-04-18 16:00] VITALS: BP_SYST 146; PULSE 89; RESP 18; TEMP 98.2; O2SAT 99
[2023-04-18] MEDS: HEPARIN 25,000 UNITS/D5W 250ML 250 ML IV PRN (18:04)
[2023-04-18 19:50] VITALS: BP_SYST 123; PULSE 84; RESP 18; TEMP 97.4; O2SAT 94
[2023-04-18 20:00] VITALS: O2SAT 94
[2023-04-18] MEDS: cefTRIAXone 1 GM in D5W 50 ML IV SCH (20:48)
[2023-04-18] MEDS: ATORVASTATIN 20 MG TABLET PO SCH (20:48)
[2023-04-18] MEDS: DONEPEZIL HCL 5 MG TABLET (ARICEPT) PO SCH (20:48)
[2023-04-19] MEDS: NYSTATIN 500,000 UNITS/5 ML UDC PO SCH ×4 (00:03→17:43)
[2023-04-19 00:45] VITALS: BP_SYST 145; PULSE 93; RESP 18; TEMP 98.3; O2SAT 95
[2023-04-19] MEDS: HEPARIN 25,000 UNITS/D5W 250ML 250 ML IV PRN (01:52)
[2023-04-19] MEDS: traMADol HCL HCL 50 MG TABLET (ULTRAM) PO PRN (04:14)
[2023-04-19 08:00] VITALS: BP_SYST 113; PULSE 86; RESP 18; TEMP 97.3; O2SAT 95
[2023-04-19 08:05] LABS: BASOPHILS # (AUTO) 0.1 K/uL (0.0-0.2); BASOPHILS % (AUTO) 0.5 % (0.0-2.0); EOSINOPHILS # (AUTO) 0.5 K/uL (0.0-0.4); EOSINOPHILS % (AUTO) 4.4 % (0.0-4.0); HEMATOCRIT 36.8 % (36-48); HEMOGLOBIN 12.5 g/dL (12.0-16.0); LYMPHOCYTES % (AUTO) 18.5 % (20.5-51.5); MEAN CORPUSCULAR HEMOGLOBIN 32 pg (27-31); MEAN CORPUSCULAR HGB CONC 34 % (32-36); MEAN CORPUSCULAR VOLUME 94 fL (79.0-98.0); MONOCYTES # (AUTO) 0.9 K/uL (0.0-1.0); MONOCYTES % (AUTO) 8.8 % (1.7-9.3); NEUTROPHILS # (AUTO) 7.3 K/uL (1.8-7.7); NEUTROPHILS % (AUTO) 67.8 % (40.0-70.0); PLATELET COUNT (AUTO) 152 K/uL (130-430); RED BLOOD CELL COUNT(AUTO) 3.92 MIL/uL (4.2-6.2); RED CELL DISTRIBUTION WIDTH 13.2 % (9.0-15.0); WHITE BLOOD COUNT (AUTO) 10.7 K/uL (4.8-10.8)
[2023-04-19 08:23] LABS: ANION GAP 6 (5-15); CALCIUM 8.7 mg/dL (8.4-11.0); CARBON DIOXIDE 25 mmol/L (23-29); CHLORIDE 101 mmol/L (98-107); CREATININE 0.74 mg/dL (0.55-1.30); GLUCOSE 123 mg/dL (74-106); SODIUM SERUM 132 mmol/L (136-145); UREA NITROGEN, BLOOD 15 mg/dL (8-21)
[2023-04-19] MEDS: ASPIRIN 81 MG TABLET(ECOTRIN) PO SCH (08:51)
[2023-04-19] MEDS: METOPROLOL TARTRATE 50 MG TABLET PO SCH (08:53)
[2023-04-19] MEDS: DOXYCYCLINE HYCLATE 100 MG CAPSULE PO SCH ×2 (08:54→21:34)
[2023-04-19 11:16] VITALS: BP_SYST 122; PULSE 94; RESP 17; TEMP 97.8; O2SAT 97
[2023-04-19] MEDS: LOSARTAN POTASSIUM 50 MG TABLET (COZAAR) PO SCH (12:01)
[2023-04-19] MEDS: D5/0.45 NS 1,000 ML IV SCH (14:42)
[2023-04-19 16:57] VITALS: BP_SYST 116; PULSE 97; RESP 17; TEMP 97.8; O2SAT 97
[2023-04-19] MEDS ORDERED: ERTA1VIA IJ (18:23)
[2023-04-19 19:00] VITALS: O2SAT 95
[2023-04-19 20:00] VITALS: BP_SYST 127; PULSE 84; RESP 18; TEMP 96.7; O2SAT 95
[2023-04-19] MEDS: ERTAPENEM SODIUM 1 GM in NS 50 ML IV SCH (20:32)
[2023-04-19] MEDS: DONEPEZIL HCL 5 MG TABLET (ARICEPT) PO SCH (21:34)
[2023-04-19] MEDS: ATORVASTATIN 20 MG TABLET PO SCH (21:34)
[2023-04-20] VITALS (7 sets, daily range): BP systolic 123–161; PULSE 74–96; RESP 16–18; TEMP 97.1–98; O2SAT 95–99
[2023-04-20] MEDS: NYSTATIN 500,000 UNITS/5 ML UDC PO SCH ×4 (00:29→17:59)
[2023-04-20] MEDS: DOXYCYCLINE HYCLATE 100 MG CAPSULE PO SCH ×2 (08:31→22:00)
[2023-04-20] MEDS: ASPIRIN 81 MG TABLET(ECOTRIN) PO SCH (08:31)
[2023-04-20] MEDS: METOPROLOL TARTRATE 50 MG TABLET PO SCH (08:32)
[2023-04-20] MEDS: LOSARTAN POTASSIUM 50 MG TABLET (COZAAR) PO SCH (08:34)
[2023-04-20] MEDS: D5/0.45 NS 1,000 ML IV SCH (18:00)
[2023-04-20] MEDS: DONEPEZIL HCL 5 MG TABLET (ARICEPT) PO SCH (22:00)
[2023-04-20] MEDS: ATORVASTATIN 20 MG TABLET PO SCH (22:00)
[2023-04-20] MEDS: ERTAPENEM SODIUM 1 GM in NS 50 ML IV SCH (22:01)
[2023-04-21 00:47] VITALS: BP_SYST 129; PULSE 76; RESP 18; TEMP 97.9; O2SAT 99
[2023-04-21] MEDS: NYSTATIN 500,000 UNITS/5 ML UDC PO SCH ×4 (06:00→17:05)
[2023-04-21 06:11] LABS: BASOPHILS # (AUTO) 0.1 K/uL (0.0-0.2); BASOPHILS % (AUTO) 0.5 % (0.0-2.0); EOSINOPHILS # (AUTO) 0.4 K/uL (0.0-0.4); EOSINOPHILS % (AUTO) 3.6 % (0.0-4.0); HEMOGLOBIN 12.8 g/dL (12.0-16.0); LYMPHOCYTES # (AUTO) 2.3 K/uL (1.0-5.5); LYMPHOCYTES % (AUTO) 21.5 % (20.5-51.5); MEAN CORPUSCULAR HEMOGLOBIN 32 pg (27-31); MEAN CORPUSCULAR HGB CONC 34 % (32-36); MEAN CORPUSCULAR VOLUME 94 fL (79.0-98.0); MONOCYTES # (AUTO) 0.9 K/uL (0.0-1.0); MONOCYTES % (AUTO) 8.6 % (1.7-9.3); NEUTROPHILS # (AUTO) 6.9 K/uL (1.8-7.7); NEUTROPHILS % (AUTO) 65.8 % (40.0-70.0); PLATELET COUNT (AUTO) 165 K/uL (130-430); RED BLOOD CELL COUNT(AUTO) 4.05 MIL/uL (4.2-6.2); RED CELL DISTRIBUTION WIDTH 13.1 % (9.0-15.0); WHITE BLOOD COUNT (AUTO) 10.5 K/uL (4.8-10.8)
[2023-04-21 06:38] LABS: ANION GAP 8 (5-15); CALCIUM 8.7 mg/dL (8.4-11.0); CARBON DIOXIDE 25 mmol/L (23-29); CHLORIDE 103 mmol/L (98-107); CREATININE 0.82 mg/dL (0.55-1.30); GLUCOSE 125 mg/dL (74-106); POTASSIUM 3.8 mmol/L (3.5-5.1); SODIUM SERUM 136 mmol/L (136-145); UREA NITROGEN, BLOOD 13 mg/dL (8-21)
[2023-04-21 07:00] LABS: ERYTHROCYTE SEDIMENTATION RATE 28 MM/HR (0-20)
[2023-04-21 08:00] VITALS: BP_SYST 140; PULSE 82; RESP 18; TEMP 97.4; O2SAT 97
[2023-04-21] MEDS: LOSARTAN POTASSIUM 50 MG TABLET (COZAAR) PO SCH (09:22)
[2023-04-21] MEDS: DOXYCYCLINE HYCLATE 100 MG CAPSULE PO SCH ×2 (09:22→22:04)
[2023-04-21] MEDS: ASPIRIN 81 MG TABLET(ECOTRIN) PO SCH (09:23)
[2023-04-21] MEDS: METOPROLOL TARTRATE 50 MG TABLET PO SCH (09:23)
[2023-04-21 11:21] VITALS: BP_SYST 138; PULSE 91; RESP 16; TEMP 97.3; O2SAT 94
[2023-04-21 15:07] VITALS: BP_SYST 147; PULSE 76; RESP 16; TEMP 96.1; O2SAT 96
[2023-04-21] MEDS: D5/0.45 NS 1,000 ML IV SCH (17:05)
[2023-04-21 19:00] VITALS: O2SAT 96
[2023-04-21] MEDS: ERTAPENEM SODIUM 1 GM in NS 50 ML IV SCH (22:03)
[2023-04-21] MEDS: ATORVASTATIN 20 MG TABLET PO SCH (22:03)
[2023-04-21] MEDS: DONEPEZIL HCL 5 MG TABLET (ARICEPT) PO SCH (22:04)
[2023-04-22] MEDS: NYSTATIN 500,000 UNITS/5 ML UDC PO SCH ×4 (00:55→17:00)
[2023-04-22 01:11] VITALS: BP_SYST 137; PULSE 98; RESP 18; TEMP 97.2; O2SAT 96
[2023-04-22 06:24] LABS: BASOPHILS # (AUTO) 0.1 K/uL (0.0-0.2); BASOPHILS % (AUTO) 0.5 % (0.0-2.0); EOSINOPHILS # (AUTO) 0.3 K/uL (0.0-0.4); EOSINOPHILS % (AUTO) 2.4 % (0.0-4.0); HEMATOCRIT 39.2 % (36-48); HEMOGLOBIN 13.3 g/dL (12.0-16.0); LYMPHOCYTES # (AUTO) 2.7 K/uL (1.0-5.5); LYMPHOCYTES % (AUTO) 20.3 % (20.5-51.5); MEAN CORPUSCULAR HEMOGLOBIN 32 pg (27-31); MEAN CORPUSCULAR HGB CONC 34 % (32-36); MEAN CORPUSCULAR VOLUME 93 fL (79.0-98.0); MONOCYTES # (AUTO) 1.2 K/uL (0.0-1.0); MONOCYTES % (AUTO) 9.2 % (1.7-9.3); NEUTROPHILS # (AUTO) 8.9 K/uL (1.8-7.7); NEUTROPHILS % (AUTO) 67.6 % (40.0-70.0); PLATELET COUNT (AUTO) 186 K/uL (130-430); RED BLOOD CELL COUNT(AUTO) 4.22 MIL/uL (4.2-6.2); RED CELL DISTRIBUTION WIDTH 12.9 % (9.0-15.0); WHITE BLOOD COUNT (AUTO) 13.2 K/uL (4.8-10.8)
[2023-04-22 06:39] LABS: ANION GAP 7 (5-15); CALCIUM 8.7 mg/dL (8.4-11.0); CARBON DIOXIDE 25 mmol/L (23-29); CHLORIDE 101 mmol/L (98-107); CREATININE 0.83 mg/dL (0.55-1.30); GLUCOSE 143 mg/dL (74-106); POTASSIUM 3.8 mmol/L (3.5-5.1); SODIUM SERUM 133 mmol/L (136-145); UREA NITROGEN, BLOOD 12 mg/dL (8-21)
[2023-04-22 06:48] LABS: ERYTHROCYTE SEDIMENTATION RATE 38 MM/HR (0-20)
[2023-04-22 08:00] VITALS: BP_SYST 124; PULSE 113; RESP 20; TEMP 97; O2SAT 95
[2023-04-22] MEDS: DOXYCYCLINE HYCLATE 100 MG CAPSULE PO SCH ×2 (08:34→21:40)
[2023-04-22] MEDS: METOPROLOL TARTRATE 50 MG TABLET PO SCH (08:34)
[2023-04-22] MEDS: ASPIRIN 81 MG TABLET(ECOTRIN) PO SCH (08:35)
[2023-04-22] MEDS: LOSARTAN POTASSIUM 50 MG TABLET (COZAAR) PO SCH (08:35)
[2023-04-22] MEDS: D5/0.45 NS 1,000 ML IV SCH (09:23)
[2023-04-22 10:47] VITALS: O2SAT 95
[2023-04-22 12:00] VITALS: BP_SYST 130; PULSE 77; RESP 14; TEMP 97.6; O2SAT 98
[2023-04-22 16:00] VITALS: BP_SYST 103; PULSE 80; RESP 15; TEMP 95.1; O2SAT 95
[2023-04-22] MEDS: ERTAPENEM SODIUM 1 GM in NS 50 ML IV SCH (20:00)
[2023-04-22] MEDS: DONEPEZIL HCL 5 MG TABLET (ARICEPT) PO SCH (21:40)
[2023-04-22] MEDS: ATORVASTATIN 20 MG TABLET PO SCH (21:40)
[2023-04-23 00:16] VITALS: BP_SYST 104; PULSE 82; RESP 19; TEMP 97.6; O2SAT 92
[2023-04-23] MEDS: NYSTATIN 500,000 UNITS/5 ML UDC PO SCH (01:05)
[2023-04-23] MEDS: D5/0.45 NS 1,000 ML IV SCH (05:10)
[2023-04-23 05:28] LABS: ERYTHROCYTE SEDIMENTATION RATE 19 MM/HR (0-20)
[2023-04-23 05:33] LABS: BASOPHILS # (AUTO) 0.1 K/uL (0.0-0.2); BASOPHILS % (AUTO) 0.5 % (0.0-2.0); EOSINOPHILS # (AUTO) 0.3 K/uL (0.0-0.4); EOSINOPHILS % (AUTO) 2.1 % (0.0-4.0); HEMATOCRIT 36.3 % (36-48); HEMOGLOBIN 12.2 g/dL (12.0-16.0); LYMPHOCYTES # (AUTO) 2.5 K/uL (1.0-5.5); LYMPHOCYTES % (AUTO) 19.7 % (20.5-51.5); MEAN CORPUSCULAR HEMOGLOBIN 31 pg (27-31); MEAN CORPUSCULAR HGB CONC 34 % (32-36); MEAN CORPUSCULAR VOLUME 93 fL (79.0-98.0); MONOCYTES # (AUTO) 1.3 K/uL (0.0-1.0); MONOCYTES % (AUTO) 10.3 % (1.7-9.3); NEUTROPHILS # (AUTO) 8.6 K/uL (1.8-7.7); NEUTROPHILS % (AUTO) 67.4 % (40.0-70.0); PLATELET COUNT (AUTO) 171 K/uL (130-430); RED CELL DISTRIBUTION WIDTH 13.3 % (9.0-15.0); WHITE BLOOD COUNT (AUTO) 12.8 K/uL (4.8-10.8)
[2023-04-23 06:12] LABS: ALANINE AMINOTRANSFERASE 24 U/L (12-78); ANION GAP 7 (5-15); ASPARTATE AMINOTRANSFERASE 31 U/L (10-37); CALCIUM 8.5 mg/dL (8.4-11.0); CARBON DIOXIDE 25 mmol/L (23-29); CHLORIDE 101 mmol/L (98-107); CREATININE 0.84 mg/dL (0.55-1.30); GLUCOSE 108 mg/dL (74-106); PHOSPHORUS 3.3 mg/dL (2.7-4.5); POTASSIUM 4.1 mmol/L (3.5-5.1); SODIUM SERUM 133 mmol/L (136-145); TOTAL BILIRUBIN 0.6 mg/dL (0.0-1.0); TOTAL PROTEIN, SERUM 5.3 g/dL (6.4-8.3); UREA NITROGEN, BLOOD 15 mg/dL (8-21)
[2023-04-23 08:00] VITALS: BP_SYST 151; PULSE 92; RESP 18; TEMP 98; O2SAT 94; O2SAT 97
[2023-04-23] MEDS ORDERED: CLOPIDOGREL BISULFATE 75 MG TABLET PO SCH (09:00)
[2023-04-23] MEDS: LOSARTAN POTASSIUM 50 MG TABLET (COZAAR) PO SCH (09:21)
[2023-04-23] MEDS: METOPROLOL TARTRATE 50 MG TABLET PO SCH (09:22)
[2023-04-23 10:08] LABS: INR 1.1 (0.8-1.2); PROTHROMBIN TIME 11.8 SECS (9.5-12.5)
[2023-04-23 11:32] VITALS: BP_SYST 95; PULSE 96; RESP 17; TEMP 97.3; O2SAT 93
[2023-04-23 17:12] VITALS: BP_SYST 107; PULSE 76; RESP 16; TEMP 98.4; O2SAT 93
[2023-04-23 20:00] VITALS: BP_SYST 109; PULSE 93; RESP 16; TEMP 97.3; O2SAT 94
[2023-04-23] MEDS: ERTAPENEM SODIUM 1 GM in NS 50 ML IV SCH (20:53)
[2023-04-23] MEDS: ATORVASTATIN 20 MG TABLET PO SCH (22:40)
[2023-04-23] MEDS: DONEPEZIL HCL 5 MG TABLET (ARICEPT) PO SCH (22:40)
[2023-04-23 23:06] LABS: COCCIDIOIDES AB IGG 0.3 IV (<=0.9); COCCIDIOIDES AB IGM 0.2 IV (<=0.9)
[2023-04-24 00:52] VITALS: BP_SYST 120; PULSE 88; RESP 20; TEMP 97.5; O2SAT 96
[2023-04-24] MEDS: D5/0.45 NS 1,000 ML IV SCH (02:08)
[2023-04-24 02:13] VITALS: O2SAT 94
[2023-04-24 05:13] LABS: BASOPHILS # (AUTO) 0.1 K/uL (0.0-0.2); BASOPHILS % (AUTO) 0.6 % (0.0-2.0); EOSINOPHILS # (AUTO) 0.2 K/uL (0.0-0.4); EOSINOPHILS % (AUTO) 1.6 % (0.0-4.0); HEMATOCRIT 34.6 % (36-48); HEMOGLOBIN 11.8 g/dL (12.0-16.0); LYMPHOCYTES # (AUTO) 2.6 K/uL (1.0-5.5); LYMPHOCYTES % (AUTO) 18.5 % (20.5-51.5); MEAN CORPUSCULAR HEMOGLOBIN 32 pg (27-31); MEAN CORPUSCULAR HGB CONC 34 % (32-36); MEAN CORPUSCULAR VOLUME 93 fL (79.0-98.0); MONOCYTES # (AUTO) 1.4 K/uL (0.0-1.0); MONOCYTES % (AUTO) 9.6 % (1.7-9.3); NEUTROPHILS # (AUTO) 9.8 K/uL (1.8-7.7); NEUTROPHILS % (AUTO) 69.7 % (40.0-70.0); PLATELET COUNT (AUTO) 166 K/uL (130-430); RED BLOOD CELL COUNT(AUTO) 3.72 MIL/uL (4.2-6.2); RED CELL DISTRIBUTION WIDTH 13.1 % (9.0-15.0); WHITE BLOOD COUNT (AUTO) 14.1 K/uL (4.8-10.8)
[2023-04-24 06:16] LABS: ANION GAP 7 (5-15); CALCIUM 8.3 mg/dL (8.4-11.0); CARBON DIOXIDE 25 mmol/L (23-29); CHLORIDE 101 mmol/L (98-107); CREATININE 0.84 mg/dL (0.55-1.30); GLUCOSE 120 mg/dL (74-106); SODIUM SERUM 133 mmol/L (136-145); UREA NITROGEN, BLOOD 18 mg/dL (8-21)
[2023-04-24] MEDS ORDERED: LIDOCAINE 1%, 20 ML MDV 20 ML ONE (08:25)
[2023-04-24] MEDS ORDERED: fentaNYL CITRATE/PF 100 MCG/2 ML AMP ONE (09:29)
[2023-04-24] MEDS ORDERED: MIDAZOLAM HCL 5 MG/5 ML VIAL ONE (09:30)
[2023-04-24] MEDS ORDERED: MIDAZOLAM HCL 5 MG/5 ML VIAL IVP ONE ×2 (09:47→09:56)
[2023-04-24] MEDS ORDERED: fentaNYL CITRATE/PF 100 MCG/2 ML AMP IVP ONE (09:52)
[2023-04-24 10:05] VITALS: BP_SYST 105; PULSE 91; RESP 18; TEMP 97; O2SAT 95
[2023-04-24 11:47] VITALS: BP_SYST 107; PULSE 92; RESP 20; TEMP 97.8; O2SAT 96
[2023-04-24] MEDS ORDERED: ERTA1VIA3 INJ (14:57)
[2023-04-24 16:00] VITALS: BP_SYST 109; PULSE 93; RESP 20; TEMP 97.5; O2SAT 96
[2023-04-24 17:35] VITALS: BP_SYST 109; PULSE 93; RESP 20; TEMP 97.5; O2SAT 96
[2023-04-24] MEDS: ERTAPENEM SODIUM 1 GM in NS 50 ML IV SCH (18:51)
== END 2023-04-24 19:30 | DRG 180 ==
LOC: SED 23:28 → SMU 04-16 03:24 → STU 04-16 11:07 → SMU 04-20 15:24
PROVIDERS: ADMIT Specialist; ATTEND Specialist
PROC: 0BBJ3ZX Excision of Left Lower Lung Lobe, Percutaneous Approach, Diagnostic (ICD-10-PCS; principal; 2023-04-24 09:30)
DX: C34.32 Malignant neoplasm of lower lobe, left bronchus or lung (principal); I21.A1 Myocardial infarction type 2; N39.0 Urinary tract infection, site not specified; R65.10 Systemic inflammatory response syndrome (SIRS) of non-infectious origin without acute organ dysfunction; E87.1 Hypo-osmolality and hyponatremia; E86.0 Dehydration; I10 Essential (primary) hypertension; I25.10 Atherosclerotic heart disease of native coronary artery without angina pectoris; J44.9 Chronic obstructive pulmonary disease, unspecified; Z20.822 Contact with and (suspected) exposure to COVID-19; B96.20 Unspecified Escherichia coli [E. coli] as the cause of diseases classified elsewhere; B96.4 Proteus (mirabilis) (morganii) as the cause of diseases classified elsewhere; R73.9 Hyperglycemia, unspecified; Z88.8 Allergy status to other drugs, medicaments and biological substances; Z79.899 Other long term (current) drug therapy; Z87.891 Personal history of nicotine dependence; Z95.1 Presence of aortocoronary bypass graft
CPT/HCPCS: 36415; 71045; 71250-TC; 76376; 76770; 80048; 80053; 81000; 83605; 83735; 83880; 84100; 84443; 84484; 85025; 85610-TC; 85651-TC; 85730-TC; 86635; 87040; 87086; 88305; 88341; 88342; 93005; 93306; 97110-GP; 97163-GP; 97530-GP; 99285; C1751; C1769; G0378; J0696; J1335; J1644; J2001; J2250; J3010; J7030; J7060